=== PATIENT | male | born 1990 | race Caucasian/White ===

== ENCOUNTER 2023-06-29 16:15 | Emergency (ER) | payer BC, SELFPAY ==
--- NOTE | 2023-06-29 16:15 | XRR_ITS ---
PROCEDURE INFORMATION: Exam: XR Right Knee Exam date and time: 06/29/2023 4:57 PM Age: 32 years old Clinical indication: Pain; Knee; Right; Additional info: Injury TECHNIQUE: Imaging protocol: Radiologic exam of the right knee. Views: 3 views. COMPARISON: No relevant prior studies available. FINDINGS: Bones/joints: Normal. Soft tissues: Normal. XR/XR knee RT 3V* [id number] IMPRESSION: No acute findings.
[2023-06-29 16:24] VITALS: BP 155/85; PULSE 77; RESP 18; TEMP 36.6; O2SAT 99
--- NOTE | 2023-06-29 17:07 | W.ED.EXTPRO ---
Documented by User: [email or web address] Lynch 06/29/23 17:36 HPI - Extremity Problem General: Chief complaint: Extremity Problem,Nontraumatic Stated complaint: Right knee pains Time Seen by Provider: 06/29/23 16:27 Source: patient Mode of arrival: ambulatory Limitations: no limitations History of Present Illness: Patient is a 32-year-old male who presents to the emergency department complaining of right knee pain onset this morning. 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 He has not had issues with the knee until today, when he notes gradual onset of diffuse knee pain that radiates distally down the lateral aspect of his right lower extremity. He notes some swelling to the joint, but denies any injury or deformities. The pain is worsened with any movement or bearing weight. He denies trying anything for the pain. Pain is constant and aching. He denies any distal neurovascular deficits, weakness, paresthesias, bruising, or any other symptoms at this time. MD Complaint: joint swelling (Right knee) and joint pain (Right knee) Pain Consistency: constant Location: right Quality: aching Radiation: distal Exacerbating factors: range of motion, weight bearing and walking Associated symptoms: Reports no associated symptoms; Deny chest pain, fever(s) or rash Review of Systems General: Reports: 10 or more systems reviewed and unremarkable except in HPI and below Const: Denies: fever(s), chills or fatigue Eyes: Denies: change in vision ENMT: Denies: throat pain, ear or mastoid pain or nasal discharge Card: Denies: chest pain, palpitations, swelling of feet/ankles or lightheadedness Resp: Denies: dyspnea, productive cough or wheezing GI: Denies: abdominal pain, nausea, vomiting, diarrhea or constipation : Denies: flank pain, difficulty urinating, dysuria or urinary frequency Musc: Reports: extremity pain (Right lower extremity), joint pain (Right knee) and joint swelling (Right knee); Denies: neck pain, back pain, joint redness or joint warmth Skin/Breast: Denies: rash Neuro: Denies: headache(s), numbness in extremities or weakness in extremities PFSH ED PFSH: Social History Smoking and tobacco/nicotine status: current every day tobacco/nicotine user cigarettes Packs smoked per day: 1 Quit status (tobacco/nicotine): not considering quitting Alcohol intake: current Alcohol intake frequency: holidays/special occasions only Substance/Drug Use: never Current gender identity: Male Physical Exam Const: COMMON NORMALS: no acute distress, patient oriented x3 and no limitations GENERAL APPEARANCE: cooperative, comfortable and well developed ORIENTATION/CONSCIOUSNESS: Yes awake, Yes oriented to person, Yes oriented to place and Yes oriented to time HENMT: COMMON NORMALS: normocephalic, atraumatic and hearing grossly normal bilaterally HEAD & SCALP: normocephalic and atraumatic Eye: COMMON NORMALS: EOMs intact bilaterally and conjunctivae normal CONJUNCTIVA: Yes conjunctivae normal Neck/C-Spine: COMMON NORMALS: full ROM and supple Resp: COMMON NORMALS: normal respiratory effort, No retractions and No use of accessory muscles Extremity: OTHER: Diffuse tenderness to palpation of the right knee joint, specifically worse over the medial and lateral joint line. No bruising noted. No effusion appreciable. Negative varus valgus testing. Negative Amadou. Negative anterior posterior drawer. Somewhat limited range of motion due to pain, worse in full extension. Distal neurovascular exam is intact. No discolorations or lower leg edema noted. Neuro: COMMON NORMALS: patient oriented x3, moves all extremities, no focal motor deficits and no sensory deficits noted SENSORIUM/ORIENTATION: Yes oriented to person, Yes oriented to place and Yes oriented to time Psych: COMMON NORMALS: mental status grossly normal and Normal thought process present THOUGHT PROCESS: Normal thought process present Skin: COMMON NORMALS: no rashes or lesions noted GENERAL SKIN EXAM: no rashes or lesions noted Course Vital Signs: Vital signs: Vital Signs Temperature 97.9 F 06/29/23 16:24 Pulse Rate 77 06/29/23 16:24 Respiratory Rate 18 06/29/23 16:24 Blood Pressure 155/85 06/29/23 16:24 Pulse Oximetry 99 06/29/23 16:24 Oxygen Delivery Me thod Room Air 06/29/23 16:24 MDM - Extremity (Nontraumatic) Medical Decision Making This patient is a 32-year-old male who was seen and evaluated in the emergency department today for acute onset of right knee pain. 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 On examination, all special knee testing was negative, and he exhibited diffuse tenderness to palpation which was specifically worse over the medial and lateral aspects. However, there is no bruising or other skin changes noted, and the distal lower extremity exam was also unremarkable. X-ray of the right knee failed to demonstrate any signs of acute fracture or dislocation. Discussed with the patient importance of establishing with primary care provider to follow-up with if his pain does not improve with conservative therapy. Patient will be wrapped in Chintan bandage and given crutches for comfort care. He will use Tylenol as needed for pain, and rest the knee for the next couple of days prior to returning to work on Monday. He agrees with this plan. Patient discharged home. Lab Data Radiology Impressions Knee X-Ray 06/29/23 16:15 IMPRESSION: No acute findings. All radiology interpretation(s) finalized by discharge Discharge Plan Discharge Patient Disposition: Home Clinical Impression: Acute pain of right knee Condition: Stable Prescriptions: No Action clarithromycin 500 mg tablet 500 mg PO BID 10 Days Qty: 20 0RF prednisone 20 mg tablet 40 mg PO DAILY 5 Days Qty: 10 0RF Rx Instructions: start this medicine on Discharge Orders: Discharge ED (Routine); Ordered 06/29/23 Ordered By: Sven Bishop Discharge Diet: Usual diet Discharge Activity: Increase activity as tolerated Patient Instructions: Knee Pain (ED) Activity Restrictions/Additional Instructions: Rest, ice, compression, and elevation as instructed. Tylenol as needed. Gradually increase range of motion over the next couple days as tolerated. Follow-up with your primary care provider as instructed. If your condition worsens or does not improve, return for further evaluation. 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[employer] Documented by User: John Chaudhry DO 06/30/23 06:13 HPI - Extremity Problem General: Chief complaint: Extremity Problem,Nontraumatic Stated complaint: Right knee pains Time Seen by Provider: 06/29/23 16:27 [facility] ED PFSH: Social History Smoking and tobacco/nicotine status: current every day tobacco/nicotine user cigarettes Packs smoked per day: 1 Quit status (tobacco/nicotine): not considering quitting Alcohol intake: current Alcohol intake frequency: holidays/special occasions only Substance/Drug Use: never Current gender identity: Male Course Vital Signs: Vital signs: Vital Signs Temperature 97.9 F 06/29/23 16:24 Pulse Rate 77 06/29/23 16:24 Respiratory Rate 18 06/29/23 16:24 Blood Pressure 155/85 06/29/23 16:24 Pulse Oximetry 99 06/29/23 16:24 Oxygen Delivery Me thod Room Air 06/29/23 16:24 MDM - Extremity (Nontraumatic) Medical Decision Making This patient is a 32-year-old male who was seen and evaluated in the emergency department today for acute onset of right knee pain. 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 On examination, all special knee testing was negative, and he exhibited diffuse tenderness to palpation which was specifically worse over the medial and lateral aspects. However, there is no bruising or other skin changes noted, and the distal lower extremity exam was also unremarkable. X-ray of the right knee failed to demonstrate any signs of acute fracture or dislocation. Discussed with the patient importance of establishing with primary care provider to follow-up with if his pain does not improve with conservative therapy. Patient will be wrapped in Chintan bandage and given crutches for comfort care. He will use Tylenol as needed for pain, and rest the knee for the next couple of days prior to returning to work on Monday. He agrees with this plan. Patient discharged home. Chart reviewed and patient discussed with midlevel. Agree with assessment and plan. Lab Data Radiology Impressions Knee X-Ray 06/29/23 16:15 IMPRESSION: No acute findings. Discharge Plan Discharge Patient Disposition: Home Clinical Impression: Acute pain of right knee Condition: Stable Prescriptions: No Action clarithromycin 500 mg tablet 500 mg PO BID 10 Days Qty: 20 0RF prednisone 20 mg tablet 40 mg PO DAILY 5 Days Qty: 10 0RF Rx Instructions: start this medicine on Discharge Orders: Discharge ED (Routine); Ordered 06/29/23 Ordered By: Sven Bishop Discharge Diet: Usual diet Discharge Activity: Increase activity as tolerated Patient Instructions: Knee Pain (ED) Activity Restrictions/Additional Instructions: Rest, ice, compression, and elevation as instructed. Tylenol as needed. Gradually increase range of motion over the next couple days as tolerated. Follow-up with your primary care provider as instructed. If your condition worsens or does not improve, return for further evaluation. 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
== END 2023-06-29 17:46 | disposition home or self-care (01) ==
PROVIDERS: Emergency Provider Physician Assistant
DX: M25.561 Pain in right knee (principal); F17.210 Nicotine dependence, cigarettes, uncomplicated
CPT/HCPCS: 73562; 99283; E0114